=== PATIENT | female | born 1950 | race Caucasian/White ===

== ENCOUNTER 2017-11-05 12:12 | Day surgery (SDC) | payer OTHER ==
[~2017-11-05 12:12] MED LIST: Buffered Lidocaine 0.9% SYRIN* 5 ML/SYR SYRINGE INTRADERM ONE; Dexamethasone IV* 4 MG/ML 1 ML (4 MG) IV SLOW PU ONE; Famotidine IV* 10 MG/ML 2 ML (20 mg) IV ONE
[2017-11-05] MEDS ORDERED: ceFAZolin 2 GM PREMIX (*) 2 GM/50 ML BAG IVPB ONE (12:57)
[2017-11-05] MEDS ORDERED: Famotidine IV* 10 MG/ML 2 ML (20 mg) ONE (12:57)
[2017-11-05] MEDS ORDERED: Dexamethasone IV* 4 MG/ML 1 ML (4 MG) ONE (12:57)
[2017-11-05] MEDS ORDERED: fentaNYL* 50 MCG/ML 2 ML VIAL (100 MCG VIAL) ONE (14:08)
[2017-11-05] MEDS ORDERED: Midazolam* 1 MG/ML 2 ML VIAL (2 MG) ONE (14:08)
[2017-11-05] MEDS ORDERED: Lidocaine 2% PF * 5 ML VIAL ONE (14:08)
[2017-11-05] MEDS ORDERED: Propofol* 10 MG/ML 20 ML BTL IV PUSH ONE (14:08)
[2017-11-05] MEDS ORDERED: Bupivacaine 0.25% SDV* 30 ML ONE (14:24)
[2017-11-05] MEDS ORDERED: HYDROcodone/ACETAMIN 5-325 MG* 1 TAB PO PRN (14:32)
[2017-11-05] MEDS ORDERED: Naloxone* 0.4 MG/ML 1 ML VIAL IV PRN (14:32)
[2017-11-05] MEDS ORDERED: Ondansetron INJ* 2 MG/ML VIAL IV PRN (14:32)
[2017-11-05] MEDS ORDERED: fentaNYL* 50 MCG/ML 2 ML VIAL (100 MCG VIAL) IV PRN (14:32)
[2017-11-05] MEDS ORDERED: Ketorolac INJ* 30 MG/ML 1 ML VIAL IV PRN (14:32)
[2017-11-05 15:58] VITALS: BP 137/88
--- NOTE | 2017-11-07 08:57 | OP ---
DATE OF OPERATION: 11/05/17 - [facility] DATE OF : 48. SURGEON: Greyson De Jesus MD. CASING SPLITTER: FELICIAT Lozano. ANESTHESIOLOGIST: Dr. Galvan. ANESTHESIA: Local MAC. PRE-OP DIAGNOSIS: Left ring finger partial amputation. POST-OP DIAGNOSIS: Left ring finger partial amputation. OPERATIVE PROCEDURE: Left ring finger distal phalanx revision amputation with excision of the tuft and closure of the wound with a volar V-Y advancement flap. INDICATIONS: Annamarie had the tip of the finger sliced off. A portion of the sterile matrix and distal phalanx was removed. The orientation of the laceration was transverse and not really palmar or dorsal oblique. I told her that we could preserve length by closing the wound with the V-Y advancement flap. We discussed risks and benefits, including the risk of devitalizing and failure of the flap. She wants to proceed with surgery. ESTIMATED BLOOD LOSS: 2 mL. COMPLICATIONS: None. FINDINGS: See above and below. DESCRIPTION OF PROCEDURE: Annamarie was seen in the preoperative holding area. The correct side, site, and procedure were identified. We came back to the operating room. She got some anesthesia and then I performed a digital block. The arm was prepped and draped in the usual fashion. A time-out was performed. I began by placing a Tourni-Cot on the finger and leaving this on proximally throughout the case. I then debrided off all of the loose friable soft tissue until I had nice clean soft tissue to work with. The distal end of the bone was exposed. I excised a couple of millimeters of the sterile matrix distally and then circumferentially released the soft tissue around the bone. The bone cutter was used to excise 2 to 3 mm of distal phalanx. I could not quite get the wound to close and so I went ahead and performed a V-Y advancement flap in typical fashion. She had already done this herself on the ulnar aspect, and on the radial aspect I did this with a knife taking care to preserve the digital nerve and artery. I released the flap off the periosteum palmarly. I then was able to mobilize the flap to get the wound to close. I went ahead and opened up the nailfold. I placed a piece of aluminum suture wrapper in the nailfold and this was sutured in place with a 4-0 nylon suture. I then sewed my volar flap from the distal end of the flap out to the eponychium with a couple of 4-0 nylon sutures. The margins of the flap were closed with 4-0 nylon simple interrupted sutures. The proximal aspect was closed as a Y. The area was cleaned up. The wound was dressed with soft dressings. The Tourni-Cot was cut off. The finger and the flap pinked up immediately. She was woken up and taken to the recovery room in stable condition. [id number]/[facility] #: [id number] MTDD
== END 2017-11-05 16:26 | disposition home or self-care (01) ==
LOC: OREAST 12:12
PROVIDERS: ATTEND Orthopaedic Surgery Hand Surgery
DX: S61.315A Laceration without foreign body of left ring finger with damage to nail, initial encounter (principal); W31.2XXA Contact with powered woodworking and forming machines, initial encounter; Y92.9 Unspecified place or not applicable
CPT/HCPCS: J0690; J1100; J2250; J2704; J3010

== ENCOUNTER 2018-10-25 07:39 | Emergency (ER) | payer OTHER ==
[2018-10-25 07:59] VITALS: BP 135/95
--- NOTE | 2018-10-25 08:32 | UC ---
Skin Complaint HPI - HPI Summary HPI Summary: 68 yo female with left low back pain x about 2 weeks no injury rash x 4-5 days no relief with ibuprofen no bowel or bladder dysfunction no f/c no hx CA - History of Current Complaint Chief Complaint: UCSkin Time Seen by Provider: 10/25/18 08:14 Stated Complaint: LOW BACK PAIN Hx Obtained From: Patient Onset/Duration: Sudden Onset, Lasting Weeks Skin Exposure Onset/Duration: Minutes Ago Timing: Constant Onset Severity: Mild Current Severity: Severe Pain Intensity: 10 Pain Scale Used: 0-10 Numeric Location: Discrete Character: Raised, Painful Aggravating Factor(s): Nothing Alleviating Factor(s): Nothing Associated Signs & Symptoms: Positive: Rash - Allergy/Home Medications Allergies/Adverse Reactions: Allergies Allergy/AdvReac Type Severity Reaction Status Date / Time No Known Allergies Allergy Verified 10/25/18 07:49 Home Medications: Home Medications Acetaminophen [Mapap] 500 mg PO PRN 10/25/18 [History] Ibuprofen TAB* [Advil TAB*] 600 mg PO Q6H PRN 10/25/18 [History Confirmed ] PMH/Surg Hx/FS Hx/Imm Hx Previously Healthy: Yes - Surgical History Surgical History: None Surgery Procedure, Year, and Place: FINGER TIP REPAIR - Family History Known Family History: Positive: Hypertension - Social History Alcohol Use: None Substance Use Type: None Smoking Status (MU): Never Smoked Tobacco Review of Systems All Other Systems Reviewed And Are Negative: Yes Constitutional: Positive: Negative Skin: Positive: Rash Eyes: Positive: Negative ENT: Positive: Negative Respiratory: Positive: Negative Cardiovascular: Positive: Negative Gastrointestinal: Positive: Negative Genitourinary: Positive: Negative Motor: Positive: Negative Neurovascular: Positive: Negative Musculoskeletal: Positive: Negative Neurological: Positive: Negative Psychological: Positive: Negative Physical Exam Triage Information Reviewed: Yes Appearance: Well-Appearing, No Pain Distress, Well-Nourished Vital Signs: Initial Vital Signs Temp 98.1 F 10/25/18 07:51 Pulse 87 10/25/18 07:51 Resp 17 10/25/18 07:51 BP 135/95 10/25/18 07:51 Pulse Ox 99 10/25/18 07:51 Vital Signs Reviewed: Yes Eyes: Positive: Conjunctiva Clear ENT: Positive: Hearing grossly normal. Negative: Nasal congestion, Nasal drainage, Trismus, Muffled voice, Hoarse voice Neck: Positive: Supple, Nontender, No Lymphadenopathy Respiratory: Positive: Lungs clear, Normal breath sounds, No respiratory distress Cardiovascular: Positive: RRR, No Murmur Musculoskeletal: Positive: Strength Intact, ROM Intact, No Edema Neurological: Positive: Alert Psychological Exam: Normal Skin: Positive: Other - see image Images Front/Back of Body, Lg ([place]): 1 - vesicular rash 2 - vesicular rash Course/Dx - Course Course Of Treatment: back exam - from neuro brisk reflexes (ankle jerk and knee jerks), strength 5/5 , toes down going normal gait an (-) slr - Diagnoses Provider Diagnosis: Shingles Discharge - Sign-Out/Discharge Documenting (check all that apply): Patient Departure All imaging exams completed and their final reports reviewed: No Studies - Discharge Plan Condition: Stable Disposition: HOME Prescriptions: Famciclovir(NF) [Famvir(NF)] 500 mg PO TID #21 tab traMADol TAB* [Ultram*] 50 mg PO Q6HR PRN #20 tab MDD 4 PRN Reason: Pain - Severe Patient Education Materials: Ramesh (ED) Referrals: No Primary Care Phys,NOPCP [Primary Care Provider] - Additional Instructions: I suggest you get rechecked in about a week BP a little higher than we like to see and needs following - Billing Disposition and Condition Condition: STABLE Disposition: Home
== END 2018-10-25 08:50 | disposition home or self-care (01) ==
LOC: UCCORT 07:39
DX: B02.9 Zoster without complications (principal)
CPT/HCPCS: 99212; G0463